=== PATIENT | female | born 1990 | race Asian ===

== ENCOUNTER 2022-05-30 23:13 | Observation (INO) | payer BC ==
[~2022-05-30] VITALS: Ht 167.6 cm; Wt 72.6 kg
[2022-05-30] MEDS ORDERED: FERR325E14 PO (23:56)
[2022-05-30] MEDS ORDERED: PRETAB PO (23:56)
[2022-05-30] MEDS ORDERED: OSC500 PO (23:56)
[2022-05-30 23:57] VITALS: BP 104/56
== END 2022-05-31 00:24 | disposition home or self-care (01) ==
LOC: MLD 23:13
PROVIDERS: ADMIT Obstetrics & Gynecology; ATTEND Obstetrics & Gynecology
DX: O26.893 Other specified pregnancy related conditions, third trimester (principal); R10.13 Epigastric pain; Z3A.34 34 weeks gestation of pregnancy
CPT/HCPCS: 59025; 81000; G0378